=== PATIENT | male | born 1975 | race Caucasian/White ===

== ENCOUNTER 2020-01-10 18:46 | Emergency (ER) | payer OTHER ==
[~2020-01-10] VITALS: Ht 180.3 cm; Wt 100.0 kg
[~2020-01-10 18:46] MED LIST: AUGMENTIN500 MG OR; CORTISPORIN OTI10 ML AD; NAPROXEN500 MG PO; NO HOME MEDS; OMNICEF300 MG OR; ZITHROMAX250 MG PO
[2020-01-10] MEDS ORDERED: METFORMIN500 M2 PO (19:04)
[2020-01-10] MEDS ORDERED: ALLOPURINOL100 MG PO (19:04)
[2020-01-10 19:16] LABS: HEMATOCRIT 43.8 % (39.0-50.0); HEMOGLOBIN 14.4 g/dl (14.0-18.0); IMMATURE GRANULOCYTES 0.3 % (0.0-5.0); MEAN CORPUSCULAR HGB CONC 32.9 g/dL CAL (32.0-36.0); NEUT# 4.21 thou/uL (1.82-7.42); RED BLOOD COUNT 4.64 mill/uL (4.70-6.10)
[2020-01-10 19:20] LABS: MEAN CELL VOLUME 94.4 fL CALC (80.0-100.0)
[2020-01-10 19:30] LABS: BUN 23 mg/dL (9-20); BUN/CREATININE RATIO 18 (12-20 (CALC)); CARBON DIOXIDE 26 mmol/l (22-30); CHLORIDE 103 mmol/l (95-108); CREATININE 1.3 mg/dL (0.7-1.3); GFR 60 ML/MIN (>=60 (CALC)); GFR FOR AFR.AMER. > 60 ML/MIN (>=60 (CALC)); POTASSIUM 4.2 mmol/l (3.5-5.1)
[2020-01-10 19:42] LABS: ANION GAP 12 (6-22 (CALC)); SODIUM 137 mmol/l (137-146)
[2020-01-10 23:15] VITALS: BP 145/87
== END 2020-01-10 23:16 | disposition home or self-care (01) | DRG 313 ==
LOC: ED 18:46
PROVIDERS: Family Medicine
DX: R07.9 Chest pain, unspecified (principal); E11.9 Type 2 diabetes mellitus without complications; Z79.84 Long term (current) use of oral hypoglycemic drugs